=== PATIENT | female | born 1940 | race Two or more races ===

== ENCOUNTER 2018-02-22 23:20 | Emergency (ER) | payer MEDICARE, OTHER ==
[~2018-02-22] VITALS: Ht 170.2 cm; Wt 59.0 kg
--- NOTE | 2018-02-22 23:40 | NUR ---
Pt came to ED d/t chest pain, however, she denies it at this time. Per daughter, pt's source of pain is her left shoulder instead, describes it as "tolerable." Pt states left shoulder pain started 4 days ago, denies trauma or injury prior. she is A, O/4, able to move all extremities without assistance, on RA, in no apparent distress.
[2018-02-22] MEDS ORDERED: ASPIRIN 325 MG TABLET ONE (23:49)
[2018-02-22 23:58] LABS: BASOPHILS % (AUTO) 0.3 % (0.0-2.0); EOSINOPHILS % (AUTO) 0.5 % (0.0-6.0); HEMATOCRIT 34 % (33-45); HEMOGLOBIN 11.2 g/dL (11.5-14.8); LYMPHOCYTES # (AUTO) 2.4 /CMM (0.8-4.8); MEAN CORPUSCULAR HGB CONC 33 g/dl (31.0-36.0); MEAN CORPUSCULAR VOLUME 90 fL (82-100); MONOCYTES # (AUTO) 1.1 /CMM (0.1-1.30); MONOCYTES % (AUTO) 13.4 % (2.0-12.0); NEUTROPHILS # (AUTO) 4.9 /CMM (1.8-8.9); NEUTROPHILS % (AUTO) 57.8 % (43.0-81.0); PLATELET COUNT (AUTO) 283 /CMM (150-450); RED BLOOD CELL COUNT(AUTO) 3.75 MIL/uL (4.0-5.2); WHITE BLOOD COUNT (AUTO) 8.4 K/uL (4.3-11.0)
[2018-02-23] MEDS ORDERED: ASPIRIN 325 MG TABLET PO ONE
--- NOTE | 2018-02-23 | NUR ---
Xray of left shoulder in progress
[2018-02-23 00:06] LABS: CALCIUM, SERUM 8.6 mg/dL (8.5-10.1); CARBON DIOXIDE 22 mmol/L (21-32); CHLORIDE 94 mmol/L (98-107); CREATININE 1.5 mg/dL (0.6-1.3); GLUCOSE 281 mg/dL (74-106); POTASSIUM 3.6 mmol/L (3.5-5.1); SODIUM SERUM 129 mmol/L (136-145); UREA NITROGEN, BLOOD 33 mg/dL (7-18)
--- NOTE | 2018-02-23 00:25 | NUR ---
Received a call from the lab regarding pt's lactic acid = 3.4. Dr. Daniels notified with orders.
[2018-02-23] MEDS ORDERED: IV NS 0.9% 1,000 ML BAG IV ONE (00:30)
[2018-02-23] MEDS ORDERED: VANCOMYCIN 1 GM in IV D5W 250 ML IV ONE (00:30)
[2018-02-23] MEDS ORDERED: VANCOMYCIN 1 GM VIAL ONE (00:36)
[2018-02-23 00:48] LABS: BILIRUBIN,DIRECT 0.5 mg/dL (0.0-0.2); BILIRUBIN,TOTAL 0.9 mg/dL (0.2-1.0); TOTAL PROTEIN, SERUM 7.7 g/dL (6.4-8.2)
--- NOTE | 2018-02-23 01:00 | NUR ---
Pt is resting comfortably in bed. Warm blanket provided. Daughter at BS.
--- NOTE | 2018-02-23 01:25 | NUR ---
Urine sample collected and sent to lab.
[2018-02-23 02:04] LABS: APPEARANCE,URINE SL CLOUDY (CLEAR); BILIRUBIN,URINE NEGATIVE (NEGATIVE); BLOOD, URINE NEGATIVE Ery/uL (NEGATIVE); COLOR,URINE DARK YELLO (YELLOW); KETONES,URINE TRACE (NEGATIVE); LEUKOCYTE ESTERASE ,URINE 2+ (NEGATIVE); NITRITE, URINE NEGATIVE (NEGATIVE); PH,URINE 5.5 (5.0-8.0); PROTEIN,URINE TRACE mg/dl (NEGATIVE); UGLUCOSE 1+ mg/dL (NEGATIVE)
[2018-02-23 02:11] LABS: BACTERIA,URINE Few /HPF (None Seen); SQUAMOUS EPITHELIAL CELL,UR Few /HPF (None Seen); WBC,URINE 81-100 /HPF (0-3)
--- NOTE | 2018-02-23 02:15 | NUR ---
Pt's daughter wants to sign AMA
--- NOTE | 2018-02-23 02:25 | NUR ---
Pt's daughter signed JAISON
[2018-02-23 02:29] VITALS: BP 119/61
--- NOTE | 2018-02-23 02:32 | NUR ---
Patient's daughter does not wish to proceed with medical care recommended by Dr. Daniels. Patient given information related to possible complications, up to and including , which could occur as a result of leaving the hospital at this time. Patient verbalizes understanding of risks involved due to leaving against medical advice. Patient has signed AMA form.IV removed. Catheter intact and site benign. Pressure and 4x4 applied to site. No bleeding noted. Pt ambulatory with a steady gait
[2018-02-23 02:40] LABS: BILIRUBIN,DIRECT 0.4 mg/dL (0.0-0.2); BILIRUBIN,TOTAL 0.8 mg/dL (0.2-1.0)
== END 2018-02-23 02:31 | disposition left against medical advice (07) ==
LOC: ER 23:35 → TELE 02-23 01:49 → UNDOADMIN 02-23 01:49
DX: R07.89 Other chest pain (principal); N28.9 Disorder of kidney and ureter, unspecified; E87.1 Hypo-osmolality and hyponatremia; N39.0 Urinary tract infection, site not specified; M65.242 Calcific tendinitis, left hand; L03.114 Cellulitis of left upper limb; I10 Essential (primary) hypertension; E11.9 Type 2 diabetes mellitus without complications; F03.90 Unspecified dementia, unspecified severity, without behavioral disturbance, psychotic disturbance, mood disturbance, and anxiety; Z86.19 Personal history of other infectious and parasitic diseases; Z95.818 Presence of other cardiac implants and grafts
CPT/HCPCS: 36415; 71045-TC; 73030-TC; 80048-TC; 80076-TC; 81000-TC; 82247-TC; 82248-TC; 83605-TC; 83880; 84484-TC; 85025-TC; 85730-TC; 87040-TC; 87081-TC; 87086-TC; 93971-TC; J3370; J7030